=== PATIENT | female | born 1975 | race Native Hawaiian/Other Pacific Islander ===

== ENCOUNTER 2023-01-09 09:52 | Day surgery (SDC) | payer SELFPAY ==
[2023-01-09] VITALS (15 sets, daily range): BP systolic 133–181; BP diastolic 87–113; PULSE 92–104; RESP 16–22; TEMP 36.2–37.2; O2SAT 93–100; BMI 28.3
--- NOTE | 2023-01-09 10:21 | CRLHL7_ITS ---
For Patients: As a result of the Century Cures Act, medical imaging exams and procedure reports are released immediately into your electronic medical record. You may view this report before your referring provider. If you have questions, please contact your health care provider. INDICATION: Right lower quadrant pain COMPARISON: None TECHNIQUE: CT examination of the abdomen and pelvis was performed following the uneventful intravenous administration of 79 cc of Isovue 370. Thin section axial images were obtained from the lung bases through the pubic symphysis. Oral contrast was not administered. Please note that all CT scans at this facility use dose modulation, iterative reconstruction, and/or weight-based dosing when appropriate to reduce radiation dose to as low as reasonably achievable. FINDINGS: LUNG BASES: A few linear opacities are noted consistent with atelectasis or scarring. There is a 3 millimeter nodule in the right middle lobe. According to Fleischner Society guidelines, low risk individuals do not require followup. High risk individuals may benefit from a 12 month follow-up chest CT. The heart size is normal at the lung bases. LIVER/BILIARY SYSTEM:The liver is normal in size and configuration. There is no focal mass and there is no intra- or extra hepatic biliary ductal dilatation.Steatosis. Surgically absent gallbladder ADRENALS: Normal KIDNEYS, URETERS and BLADDER:The kidneys appear normal. No visible mass, calculus or hydronephrosis. The ureters and bladder as visualized appear normal. SPLEEN:Normal appearance. PANCREAS: Appears normal. RETROPERITONEUM and MESENTERY: There is no mass, adenopathy or aortic aneurysm. GASTROINTESTINAL SYSTEM: The appendix is well seen. There are appendicoliths, it is enlarged, distended and there is moderate periappendiceal inflammatory change. No free air. No collection. No evidence of perforation. Trace periappendiceal fluid. PELVIS: No mass, adenopathy or free fluid. OSSEOUS STRUCTURES and ABDOMINAL WALL: There is an age-appropriate appearance of the osseous structures.Diastasis rectus noted. OTHER: No free air IMPRESSION: Acute uncomplicated appendicitis Please note that all CT scans at this facility use dose modulation, iterative reconstruction, and/or weight-based dosing when appropriate to reduce radiation dose to as low as reasonably achievable. Dictated by Nhan Mac MD @ 01/09/2023 12:42:18 PM (Electronically Signed)
--- NOTE | 2023-01-09 10:38 | ED_ITS ---
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 She has no pertinent medical problems. She states last night around 23:30 she started developing diffuse abdominal pain and had a large emesis at this time. She has had no further vomiting since then but has continued to have nausea. She states the pain has been getting worse in she has no states worse now on the right lower quadrant. Denies ever having symptoms like this before. Has not ate or drink anything since yesterday other than a small amount of water this morning. Denies fevers but has had chills. Does bowel movement was yesterday and was normal. States she has not been to sleep at all due to the pain. Previous abdominal surgeries include for C-sections and a cholecystectomy. Denies vaginal bleeding, vaginal discharge, vaginal pain. Denies dysuria, chest pain, shortness of breath, lightheadedness, dizziness. Related Data Previous Rx's Medication Instructions Recorded amoxicillin 875 mg-potassium 1 tab PO BID #14 tabs 01/09/23 clavulanate 125 mg tablet hydrocodone 5 mg-acetaminophen 325 1 tab PO Q6H PRN pain #25 tabs 01/09/23 mg tablet Allergies Allergy/AdvReac Type Severity Reaction Status Date / Time No Known Drug Allergies Allergy Verified 01/09/23 12:13 Review of Systems Status of ROS: Reports: 10 or more systems reviewed and unremarkable except as noted in History and below [facility] Surgical History (Updated 01/09/23 @ 13:28 by Marifer Lee MD) S/P laparoscopic cholecystectomy ?Z90.49 - Acquired absence of other specified parts of digestive tract (ICD- 10) History of delivery ?Z98.891 - History of uterine scar from previous surgery (ICD-10) Social History (Updated 01/09/23 @ 13:31 by Marifer Lee MD) Narrative: 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 Exam Narrative: Exam Narrative: Const: Well-nourished, Well-developed, in moderate distress Eyes: PERRL, no conjunctival injection, and symmetrical lids ENMT: Atraumatic external nose and ears. Moist mucous membranes. Neck: Symmetric, trachea midline, No thyromegaly. CVS: RRR, No murmurs or gallops. Peripheral pulses 2+ and equal in all extremities RESP: Unlabored respiratory effort. Clear to auscultation bilaterally. GI: Diffuse abdominal tenderness worse in the right lower quadrant McBurney's point. Nondistended, mild guarding. MSK:Extremities w/o deformity, Normal Active ROM Skin: Warm, Dry. No rashes or lesions. Neuro: Normal Muscle tone, No focal neurological deficits. Psych: Awake, Alert, & Oriented x3. Appropriate mood and affect. Const: Vital Signs, click to edit/add: Vital Signs - 24 hr 01/09/23 10:06 01/09/23 10:34 01/09/23 11:57 Temperature 97.2 F L 98.9 F Pulse Rate [Pulse Oximeter] 100 92 Respiratory Rate 22 18 Blood Pressure [Ri ght Upper Arm] 172/113 H 181/111 H Pulse Oximetry 100 100 99 Oxygen Delivery Me thod Room Air Room Air Course Vital Signs Vital signs: Initial Vital Signs Temperature 97.2 F L 01/09/23 10:06 Temperature Source Temporal Artery Scan 01/09/23 10:06 Pulse Rate 100 01/09/23 10:06 Respiratory Rate 22 01/09/23 10:06 Blood Pressure 172/113 H 01/09/23 10:06 Blood Pressure Mean 132 H 01/09/23 10:06 Pulse Oximetry 100 01/09/23 10:06 Oxygen Delivery Method Room Air 01/09/23 10:06 Vital Signs Temperature 97.2 F L 01/09/23 10:06 Pulse Rate 100 01/09/23 10:06 Respiratory Rate 22 01/09/23 10:06 Blood Pressure 172/113 H 01/09/23 10:06 Pulse Oximetry 100 01/09/23 10:06 Oxygen Delivery Method Room Air 01/09/23 10:06 Temperature 98.9 F 01/09/23 11:57 Pulse Rate 92 01/09/23 11:57 Respiratory Rate 18 01/09/23 11:57 Blood Pressure 181/111 H 01/09/23 11:57 Pulse Oximetry 99 01/09/23 11:57 Oxygen Delivery Method Room Air 01/09/23 11:57 Medical Decision Making MDM Narrative Medical decision making narrative: Patient is a 47-year-old female presenting to emergency department for abdominal pain started last night pain is getting worse. She states it is starting to localize to the right lower quadrant. Has had abdominal surgeries before but still has her appendix. At this time I am concerned for appendicitis in this patient. She is having diffuse abdominal pain and could be pancreatitis also. Unlikely to be in SBO but possible considering her history of abdominal surgeries. Due to the generalized nature the pain also unlikely to be an ovarian detorsion. No vaginal discharge or pain unlikely to be any need urine causes of her symptoms. CBC, CMP, urinalysis, lipase, test, lactate, blood cultures, troponin were ordered for this patient. She does meet SIRS criteria with her heart rate and respiratory rate. Patient given a L of lactated Ringer's and morphine for pain with Zofran for nausea. Patient's symptoms improved with the medication although she did need a 2nd dose of morphine. Patient's lab work returned showing a white count 24 lactic acid 2.6. Was she does meet sepsis criteria with a known acute appendicitis and CT scan she is already quite hypertensive and her pulse and respiratory rate improved with 1 L of fluids. I did not believe further fluid administration is necessary as she showing no signs: Septic shock at this time. I spoke to Dr. Lee she states patient get intro operative antibiotics and no need to order antibiotics right now. Blood cultures are pending. Urinalysis shows positive nitrites but no white blood cells or leukocyte esterase. She could have an associated UTI also was otherwise not really having urinary tract infection her main issue appears to be the acute uncomplicated appendicitis. Patient is aware and will likely have surgery today. Lab Data Labs: Lab Results 01/09/23 01/09/23 Range/Units 10:43 11:00 WBC 24.12 H (4.50-11.00) K/uL RBC 4.91 (4.00-5.20) m/uL Hgb 15.1 (12.0-16.0) gm/dL Hct 42.8 (33.0-51.0) % MCV 87 (80-100) fL MCH 31 (26-34) pg MCHC 35 (32-36) gm/dL RDW Coeff of Radha 12.2 (11.5-15.5) % Plt Count 334 (140-440) K/uL Neut % (Auto) 89.4 H (42.0-72.0) % Lymph % (Auto) 5.2 L (20-44) % [place] % (Auto) 5.1 (0.0-11.0) % Eos % (Auto) 0.0 (0.0-7.0) % Baso % (Auto) 0.0 (0.0-3.0) % Neut # (Auto) 21.60 H (1.7-7.0) K/uL Lymph # (Auto) 1.30 (0.90-2.90) K/uL [place] # (Auto) 1.20 H (0.00-0.90) K/UL Eos # (Auto) 0.00 (0.00-0.50) K/uL Baso # (Auto) 0.00 (0.00-0.30) K/uL Abs Immat Gran (auto) 0.10 (0.00-0.30) K/uL Imm/Tot Granulo (auto) 0.3 % Diff Slide Review Acceptable Review (Acceptable) Sodium 133 L (135-149) mmol/L Potassium 3.5 L (3.6-5.1) mmol/L Chloride 98 (96-114) mmol/L Carbon Dioxide 21 (20-32) mmol/L Anion Gap 14 (7-15) mEq/L BUN 8 (5-24) mg/dL Creatinine 0.4 L (0.5-1.5) mg/dL Estimated Creat Clear 146.92 Estimated GFR 124 ml/min Glucose 176 H (60-115) mg/dL Lactate 2.6 H (0.5-1.9) mmol/L Calcium 9.5 (8.4-10.6) mg/dL Total Bilirubin 1.0 (0.1-1.5) mg/dL AST 50 H (12-35) U/L ALT 69 H (4-35) U/L Alkaline Phosphatase 87 (40-150) U/L Troponin I 0.01 (0.01-0.04) ng/mL Total Protein 8.9 H (6.0-8.3) g/dL Albumin 5.1 H (3.3-5.0) g/dL Lipase 32 (23-300) U/L HCG, Qual Negative (Negative) Urine Color Yellow (Yellow) Urine Appearance Clear (Clear) Urine pH 7.0 (5.0-8.5) Ur Specific [place] 1.025 (1.000-1.030) Urine Protein 3+ A (Negative) Urine Glucose (UA) Trace A (Negative) Urine Ketones 1+ A (Negative) Urine Blood 2+ A (Negative) Urine Nitrite Positive A (Negative) Urine Bilirubin Negative (Negative) Urine Urobilinogen 0.2 (0.2-1.0) Ur Leukocyte Esterase Negative (Negative) Urine RBC 10-25 A (0-2) Urine WBC 2-5 (0-5) Ur Squamous Epith Cells Few (None-Few) Urine Bacteria Few A (None) Urine Mucus Few A (None) Imaging Data CT scan abdomen and pelvis: Radiologist's impression: INDICATION: Right lower quadrant pain COMPARISON: None TECHNIQUE: CT examination of the abdomen and pelvis was performed following the uneventful intravenous administration of 79 cc of Isovue 370. Thin section axial images were obtained from the lung bases through the pubic symphysis. Oral contrast was not administered. Please note that all CT scans at this facility use dose modulation, iterative reconstruction, and/or weight-based dosing when appropriate to reduce radiation dose to as low as reasonably achievable. FINDINGS: LUNG BASES: A few linear opacities are noted consistent with atelectasis or scarring. There is a 3 millimeter nodule in the right middle lobe. According to Fleischner Society guidelines, low risk individuals do not require followup. High risk individuals may benefit from a 12 month follow-up chest CT. The heart size is normal at the lung bases. LIVER/BILIARY SYSTEM:The liver is normal in size and configuration. There is no focal mass and there is no intra- or extra hepatic biliary ductal dilatation.Steatosis. Surgically absent gallbladder ADRENALS: Normal KIDNEYS, URETERS and BLADDER:The kidneys appear normal. No visible mass, calculus or hydronephrosis. The ureters and bladder as visualized appear normal. SPLEEN:Normal appearance. PANCREAS: Appears normal. RETROPERITONEUM and MESENTERY: There is no mass, adenopathy or aortic aneurysm. GASTROINTESTINAL SYSTEM: The appendix is well seen. There are appendicoliths, it is enlarged, distended and there is moderate periappendiceal inflammatory change. No free air. No collection. No evidence of perforation. Trace periappendiceal fluid. PELVIS: No mass, adenopathy or free fluid. OSSEOUS STRUCTURES and ABDOMINAL WALL: There is an age-appropriate appearance of the osseous structures.Diastasis rectus noted. OTHER: No free air IMPRESSION: Acute uncomplicated appendicitis Please note that all CT scans at this facility use dose modulation, iterative reconstruction, and/or weight-based dosing when appropriate to reduce radiation dose to as low as reasonably achievable. Dictated by Nhan Mac MD @ 01/09/2023 12:42:18 PM Discharge Plan Discharge Clinical Impression: Acute appendicitis Condition: Stable Activity Level: No strenuous activity Discharge Diet: Regular
[2023-01-09] MEDS: LACTATED RINGERS 1000 ML 1,000 ML IV (10:48)
[2023-01-09] MEDS: MORPHINE 4 MG/ML INJ IVP ×2 (10:49→12:23)
[2023-01-09] MEDS: ONDANSETRON 2 MG/ML inj 4 MG IVP (10:50)
[2023-01-09 11:11] LABS: Lactate* 2.6 mmol/L (0.5-1.9)
[2023-01-09 11:14] LABS: Hematocrit 42.8 % (33.0-51.0); Hemoglobin* 15.1 gm/dL (12.0-16.0); Immature Granulocytes Pct Auto 0.3 %; Lymphocytes Percent Auto 5.2 % (20-44); Mean Corpuscular HGB Conc 35 gm/dL (32-36); Mean Corpuscular Hemoglobin 31 pg (26-34); Mean Corpuscular Volume 87 fL (80-100); Monocytes Percent Auto 5.1 % (0.0-11.0); Neutrophils Percent Auto 89.4 % (42.0-72.0); Platelet Count* 334 K/uL (140-440); RDW Coefficient of Variation % 12.2 % (11.5-15.5); Red Blood Count 4.91 m/uL (4.00-5.20); White Blood Count* 24.12 K/uL (4.50-11.00)
[2023-01-09 11:19] LABS: Appearance Urine Clear (Clear); Bilirubin Urine Negative (Negative); Blood Urine 2+ (Negative); Color Urine Yellow (Yellow); Glucose Urine Trace (Negative); Ketones Urine 1+ (Negative); Leukocyte Esterase Urine Negative (Negative); Nitrite Urine Positive (Negative); Protein Urine 3+ (Negative); Specific Gravity Urine 1.025 (1.000-1.030); Urobilinogen Urine 0.2 (0.2-1.0)
[2023-01-09 11:24] LABS: Slide Review Reflex Yes
[2023-01-09 11:29] LABS: Albumin* 5.1 g/dL (3.3-5.0)
[2023-01-09 11:30] LABS: Chloride* 98 mmol/L (96-114); Potassium* 3.5 mmol/L (3.6-5.1); Sodium* 133 mmol/L (135-149)
[2023-01-09 11:32] LABS: Creatinine* 0.4 mg/dL (0.5-1.5); Est. Creatinine Clearance* 146.92; Estimated Glomerular Filt Rate 124 ml/min
[2023-01-09 11:33] LABS: Alanine Aminotransferase* 69 U/L (4-35); Alkaline Phosphatase* 87 U/L (40-150); Anion Gap 14 mEq/L (7-15); Aspartate Amino Transferase* 50 U/L (12-35); Blood Urea Nitrogen* 8 mg/dL (5-24); Calcium* 9.5 mg/dL (8.4-10.6); Carbon Dioxide* 21 mmol/L (20-32); Glucose* 176 mg/dL (60-115); Lipase* 32 U/L (23-300); Total Protein* 8.9 g/dL (6.0-8.3)
[2023-01-09 11:35] LABS: HCG Qualitative Serum* Negative (Negative)
[2023-01-09 11:35] LABS: Bacteria Urine Few; Mucus Urine Few; Squamous Epithelial Cell Urine Few (None-Few)
[2023-01-09 11:44] LABS: Troponin I* 0.01 ng/mL (0.01-0.04)
[2023-01-09 11:59] LABS: Slide Review Acceptable Review (Acceptable)
--- NOTE | 2023-01-09 13:22 | P.GSCN_ITS ---
History of Present Illness Consult details Date Seen: 01/09/23 Consult date: 01/09/23 Narrative: 47-year-old female presented to emergency room with abdominal pain. Patient states that she started to have generalized abdominal pain yesterday in the evening. The pain migrated later in the evening to the lower abdomen. Patient had vomiting and nausea. Today in the morning the pain became more in the right lower quadrant and patient presented to the emergency room. She describes the pain as sharp and constant. Movement makes the pain worse. She is not passing gas today. Her last bowel movement was yesterday. In the emergency room she was found to have an elevated WBC of 24. She had mildly elevated ALT and AST. An abdominal CT was obtained that showed a dilated wall enhancing appendix with periappendiceal inflammation. There was no evidence of an abscess. 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 Meds Home Medications and Allergies Home Medications Medication Instructions Recorded Confirmed Type No Known Home Medications 01/09/23 01/09/23 History Allergies Allergy/AdvReac Type Severity Reaction Status Date / Time No Known Drug Allergies Allergy Verified 01/09/23 12:13 Exam Narrative: Exam Narrative: General appearance: Alert, cooperative, and in no distress Pulmonary: Chest symmetric, lungs clear bilaterally Cardiovascular Heart: Regular rate and rhythm, S1, S2, no murmurs/rubs/gallops Gastrointestinal Abdominal: soft, not distended, there is a well-healed lower vertical laparotomy scar from patient's C-sections. The scar is invaginated. Patient has tenderness to palpation in the right lower quadrant with rebound tenderness. Skin: Normal skin color, texture, and turgor. No rashes or lesions. Psychiatric: Alert, cooperative, normal affect. Const: Vital Signs, click to edit/add: Vital Signs - 24 hr 01/09/23 10:06 01/09/23 11:57 Temperature 97.2 F L 98.9 F Pulse Rate [Pulse Oximeter] 100 92 Respiratory Rate 22 18 Blood Pressure [Ri ght Upper Arm] 172/113 H 181/111 H Pulse Oximetry 100 99 Oxygen Delivery Me thod Room Air Room Air Results Labs Labs: Abnormal lab results 01/09/23 01/09/23 Range/Units 10:43 11:00 WBC 24.12 H (4.50-11.00) K/uL Neut % (Auto) 89.4 H (42.0-72.0) % Lymph % (Auto) 5.2 L (20-44) % Neut # (Auto) 21.60 H (1.7-7.0) K/uL [place] # (Auto) 1.20 H (0.00-0.90) K/UL Sodium 133 L (135-149) mmol/L Potassium 3.5 L (3.6-5.1) mmol/L Creatinine 0.4 L (0.5-1.5) mg/dL Glucose 176 H (60-115) mg/dL Lactate 2.6 H (0.5-1.9) mmol/L AST 50 H (12-35) U/L ALT 69 H (4-35) U/L Total Protein 8.9 H (6.0-8.3) g/dL Albumin 5.1 H (3.3-5.0) g/dL Urine Protein 3+ A (Negative) Urine Glucose (UA) Trace A (Negative) Urine Ketones 1+ A (Negative) Urine Blood 2+ A (Negative) Urine Nitrite Positive A (Negative) Urine RBC 10-25 A (0-2) Urine Bacteria Few A (None) Urine Mucus Few A (None) Diabetes panel 01/09/23 Range/Units 10:43 Sodium 133 L (135-149) mmol/L Potassium 3.5 L (3.6-5.1) mmol/L Chloride 98 (96-114) mmol/L Carbon Dioxide 21 (20-32) mmol/L BUN 8 (5-24) mg/dL Creatinine 0.4 L (0.5-1.5) mg/dL Glucose 176 H (60-115) mg/dL Calcium 9.5 (8.4-10.6) mg/dL AST 50 H (12-35) U/L ALT 69 H (4-35) U/L Alkaline Phosphatase 87 (40-150) U/L Total Protein 8.9 H (6.0-8.3) g/dL Albumin 5.1 H (3.3-5.0) g/dL Calcium panel 01/09/23 Range/Units 10:43 Calcium 9.5 (8.4-10.6) mg/dL Albumin 5.1 H (3.3-5.0) g/dL Pituitary panel 01/09/23 Range/Units 10:43 Sodium 133 L (135-149) mmol/L Potassium 3.5 L (3.6-5.1) mmol/L Chloride 98 (96-114) mmol/L Carbon Dioxide 21 (20-32) mmol/L BUN 8 (5-24) mg/dL Creatinine 0.4 L (0.5-1.5) mg/dL Glucose 176 H (60-115) mg/dL Calcium 9.5 (8.4-10.6) mg/dL Adrenal panel 01/09/23 Range/Units 10:43 Sodium 133 L (135-149) mmol/L Potassium 3.5 L (3.6-5.1) mmol/L Chloride 98 (96-114) mmol/L Carbon Dioxide 21 (20-32) mmol/L BUN 8 (5-24) mg/dL Creatinine 0.4 L (0.5-1.5) mg/dL Glucose 176 H (60-115) mg/dL Calcium 9.5 (8.4-10.6) mg/dL Total Bilirubin 1.0 (0.1-1.5) mg/dL AST 50 H (12-35) U/L ALT 69 H (4-35) U/L Alkaline Phosphatase 87 (40-150) U/L Total Protein 8.9 H (6.0-8.3) g/dL Albumin 5.1 H (3.3-5.0) g/dL All other labs normal. Assessment and Plan Assessment and plan (1) Acute appendicitis: Status: Acute Plan 47-year-old female presents with acute appendicitis. 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 She has an elevated WBC to 24 with dilated inflamed appendix with no periappendiceal abscess. Clinically, her picture fits a diagnosis of acute appendicitis. I recommended to proceed with laparoscopic appendectomy. The procedure was discussed in detail. The risks associated procedure including infection, bleeding, and injury to intra-abdominal organs were all discussed with the patient, and she agreed to proceed.
[2023-01-09] MEDS: CEFAZOLIN 2 GM INJ IVP (13:42)
[2023-01-09] MEDS: BUPIVACAINE 0.25% 30 ML INJECTION (14:27)
--- NOTE | 2023-01-09 14:42 | PM.GSPRC ---
Operative Note Pre-op diagnosis: 1. Acute appendicitis. Post-op diagnosis: 1. Acute suppurative appendicitis. Type of Procedure: 1. Laparoscopic appendectomy. Indications: 47-year-old female presented to emergency room with generalized abdominal pain that started last night. The pain migrated to the lower abdomen and then in the morning migrated to the right lower quadrant. Patient had vomiting. She was not passing gas. Because the pain was persistent, patient presented to the emergency room. She was found to have an elevated WBC of 24. An abdominal CT was obtained that showed a dilated wall enhancing appendix with periappendiceal inflammation. On clinical exam patient had tenderness to palpation in the right lower quadrant with rebound tenderness. Given patient's clinical history and her laboratory and imaging findings, acute appendicitis was suspected, and laparoscopic appendectomy was recommended. The procedure was discussed in detail. The risks associated procedure including infection, bleeding, injury to intra-abdominal organs, and intra-abdominal abscess were all discussed with the patient, and she agreed to proceed. Procedure Description: After discussing the risks and benefits of the procedure, the patient signed informed consent.? The operative site was marked and the patient was brought to the operating room and placed on the operating table in supine position.? Care was taken to pad the patient's pressure points.?? The patient was then intubated by anesthesia.?? The operative site was then prepped and draped in the usual sterile fashion.? A time-out was then performed. A 5-mm laparoscopy port was placed in the left upper quadrant guided by a 5-mm laparoscope placed into a translucent trochar. Passage through the layers of the abdominal wall was visualized with the laparoscope. A pneumoperitoneum was established. A 30-degree 5-mm laparoscope was advanced into the abdomen. The abdomen was briefly surveyed, and there was no evidence of diffuse peritonitis. A 12-mm port and a 5-mm port were placed in the left low quadrant and suprapubically, respectively, under direct visualization by laparoscope. Left upper quadrant entrance port was then examined intraabdominally by placing the camera through the left lower quadrant port and no intraabdominal injury was seen. Omental adhesions were noted to the mid lower abdominal wall. Those adhesions were taken down with Harmonic scalpel. Hemostasis achieved with Harmonic scalpel. The patient was placed in Trendelenburg position, allowing the abdominal contents to shift cephalad. The small bowel was moved toward the midline in the abdomen and this allowed for identification of the appendix. It appeared to be inflamed but there was no evidence of perforation. The appendix was grasped and dissected from the peritoneum using Harmonic scalpel. The appendiceal mesentery was skeletonized with Harmonic scalpel. There was no definitive appendiceal artery. Smaller blood vessels of the appendiceal mesentery were clipped with 5 mm clips and divided near the specimen with Harmonic scalpel. The appendix was skeletonized and the base of the appendix was clearly visualized. A vascular load Endo-RAMSES stapler was advanced through the 12-mm port into the abdomen and appendix was stapled off at its base. The appendix was then placed in an endoscopic retrieval bag and extracted from the abdomen through the 12-mm port. The abdomen was surveyed for hemostasis. And no bleeding was seen. The 12-mm port was withdrawn and the fascial defect was closed with 0-0 Vicryl stitch using Brendon Conchita needle under direct visualization. The 5-mm port was removed under direct visualization. The left upper quadrant port was used to evacuate the pneumoperitoneum and then withdrawn. The skin incisions were closed with 4-0 monocryl. Steri-Strips were applied over the incisions. All counts were correct at the end of the case. The patient tolerated this procedure well and was transferred to PACU in stable condition. Findings: Suppurative appendicitis with no evidence of perforation. Anesthesia: GETA Surgeon: Marifer Lee MD Estimated blood loss (mL): 5 Specimen: Appendix Condition: stable Disposition: PACU Date of procedure: 01/09/23
--- NOTE | 2023-01-09 14:51 | W.ANESCHARGE ---
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
--- NOTE | 2023-01-09 14:54 | W.ANESCHARGE ---
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
[2023-01-09] MEDS: LACTATED RINGERS 1000 ML 1,000 ML 35 ML IV (15:04)
== END 2023-01-09 16:49 | disposition home or self-care (01) ==
LOC: ED 13:42 → SS 13:43
PROVIDERS: Emergency Provider Student in an Organized Health Care Education/Training Program; Visit Provider Surgery
PROC: 0DTJ4ZZ Resection of Appendix, Percutaneous Endoscopic Approach (ICD-10-PCS; CPT 44970; principal; 2023-01-09 13:00)
DX: K35.80 Unspecified acute appendicitis (principal)
CPT/HCPCS: 44970; 00840; 36415; 74177; 80053; 81001; 83605; 83690; 84484; 84703; 85025; 87040; 87086; 88304; 94761; 99140; 99283; 99284; 99285; J0330; J0665; J0690; J1100; J1885; J2270; J2405; J2704; J3010; J7120; Q9967